=== PATIENT | female | born 1990 | race Caucasian/White ===

== ENCOUNTER → 2019-02-24 14:46 | Outpatient (CLI) | payer SELFPAY ==
[2015-07-19 14:04] VITALS: BMI 27.3
[2019-02-24 15:50] LABS: Color, Urine Yellow (Yellow); Glucose, Dipstick Normal (Normal); Ketone-Dipstick Negative (Negative); Leukocyte Esterase-Dipstick Negative /ul (Negative); Nitrite-Dipstick Negative (Negative); Occult Blood-Urine Negative /ul (Negative); Protein-Dipstick Negative (Negative); Urine Bilirubin Dipstick Negative (Negative); Urine Clarity Sl. Cloudy (Clear); Urine Urobilinogen Normal (Normal); Urine pH 6.5 (5.0 - 8.0)
[2019-02-24 15:57] LABS: Absolute Neutrophil Count 6.9 X10^3/uL (2.0-7.7); Basophil# 0.02 X10^3/uL; Basophil% 0.2 % (0-1); Eosinophil# 0.06 X10^3/uL; Eosinophils% 0.6 % (0-5); Hematocrit 38.6 % (37-47); Hemoglobin 12.7 g/dl (12.0-15.0); Lymphocyte % 19.4 % (19-41); Mean Corp Hgb Conc 32.9 g/gl (32-36); Mean Corpuscular Hgb 26.9 pg (27.0-32.0); Mean Corpuscular Volume 81.8 fL (81-99); Mean Platelet Vol. 9.2 fl (6.2-12.0); Monocyte# 0.56 X10^3/uL; Neutrophil # 6.85 X10^3/uL (2.7-7.7); Neutrophil % 73.7 % (47-70); Platelet Count 302 K/mm3 (150-450); RBC Distribution Width CV 13.1 % (11.6-14.6); RBC Distribution Width SD 38.4 fl (35.1-43.9); Red Blood Count 4.72 M/mm3 (4.2-5.4); White Blood Count 9.3 K/mm3 (4.4-11.0)
[2019-02-24 16:01] LABS: POSITIVE COUNT NO; POSITIVE DIFFERENTIAL NO; POSITIVE MORPHOLOGY NO
[2019-02-24 16:05] LABS: Thyroid Stim Hormone (TSH) 0.94 uIU/mL (0.358-3.74)
[2019-02-24 16:46] LABS: HIV - WCH Non-Reactive (Nonreactive); Rubella IgG 128.1 IU/mL
[2019-02-24 17:50] LABS: Chlamydia Trachomatis by PCR Negative (Negative); Neisserai gonorrhoeae by PCR Negative (Negative); Probe Check PASS; Sample Adequacy Control PASS; Specimen Processing Control PASS
[2019-02-26 11:06] LABS: HEPATITIS B SURFACE AG Negative (Negative); Hep C Antibodies <0.1 s/co ratio (0.0-0.9)
[2019-02-28 01:43] LABS: Prenatal RPR NONREACTIVE (NONREACTIVE)
[2019-02-28 11:50] LABS: HPV Reflexed? NOT INDICATED
== END ==
PROVIDERS: Visit Provider Obstetrics & Gynecology
DX: Z34.81 Encounter for supervision of other normal pregnancy, first trimester (principal); Z12.4 Encounter for screening for malignant neoplasm of cervix; Z11.3 Encounter for screening for infections with a predominantly sexual mode of transmission
CPT/HCPCS: 36415; 81002; 84443; 85025; 86703; 86762; 86803; 87340; 87491; 87591; 87624; 88175; G0145

== ENCOUNTER → 2019-08-19 11:30 | Outpatient (CLI) | payer OTHER, SELFPAY | PROVIDERS: Visit Provider Obstetrics & Gynecology | DX: Z36.85 Encounter for antenatal screening for Streptococcus B (principal) | CPT/HCPCS: 87081 ==

== ENCOUNTER 2019-09-15 06:23 | Inpatient (IN) | payer SELFPAY, OTHER ==
[2015-07-19 14:04] VITALS: BMI 27.3
[2019-09-15 04:34] VITALS: BMI 28.6
[2019-09-15] MEDS: Lactated Ringers 1,000 ML 50 ML IV (06:40)
[2019-09-15 07:05] LABS: Absolute Neutrophil Count 7.2 X10^3/uL (2.0-7.7); Basophil# 0.03 X10^3/uL; Basophil% 0.3 % (0-1); Eosinophil# 0.05 X10^3/uL; Eosinophils% 0.5 % (0-5); Hematocrit 37.5 % (37-47); Hemoglobin 12.2 g/dL (12.0-15.0); Lymphocyte % 16.6 % (19-41); Mean Corp Hgb Conc 32.5 g/dL (32-36); Mean Corpuscular Hgb 28.2 pg (27.0-32.0); Mean Corpuscular Volume 86.6 fL (81-99); Mean Platelet Vol. 9.2 fl (6.2-12.0); Monocyte# 0.68 X10^3/uL; Monocyte% 7.1 % (0-10); NRBC Flagged by Analyzer 0 % (0-5); Neutrophil # 7.17 X10^3/uL (2.7-7.7); Neutrophil % 74.7 % (47-70); Platelet Count 231 K/mm3 (150-450); RBC Distribution Width CV 13.3 % (11.6-14.6); RBC Distribution Width SD 41.5 fl (35.1-43.9); Red Blood Count 4.33 M/mm3 (4.2-5.4); White Blood Count 9.6 K/mm3 (4.4-11.0)
--- NOTE | 2019-09-15 07:46 | PCM.HP.OB ---
History Date of Admission: 09/15/19 Final GUILLERMO: 09/13/19 Final GUILLERMO Source: US <20 weeks Gestational age: 40 Weeks and 3 Days History of this : This is a 29 year-old, G [], P [], at 40 weeks gestational age. Allergies venom-honey bee [bee venom (honey bee)] Allergy (Verified 09/15/19 04:47) Anaphylaxis Home Medications: Home Medications Vits [Prenatabs FA] 1 tablet PO DAILY 07/19/15 Calcium Carb/Mag Ox/Zinc Sulf [Leqljwa-Jamixiwfk-Uyxm Tablet] PO DAILY 09/15/19 Vitamin B Complex 1 ea PO DAILY 09/15/19 Smoking Status: Never smoker Alcohol: None Number of Fetus(es): 1 NST - FHR Rate Baby A Baseline: 120 Variability:: Moderate Accelerations:: 15 x 15 Decelerations:: None NST Reactive:: Yes FHR Category:: Category I Uterine Activity:: Q 2-6 History Past Pregnancies: Past Pregnancies Delivery Date Name GA/ Weeks Outcome Route Wt Sex Labor Length Anesthesia Delivery Location Provider FO 03/20/14 7 SAB [facility] Giancarlo Norton 03/19/15 39 Live 7lb. 3 oz M 12 None [place] Rufino Norton Labs: [facility] & Results 09/15/19 09/15/19 09/16/19 06:40 06:40 04:45 WBC 9.6 14.6 H RBC 4.33 4.34 Hgb 12.2 12.1 Hct 37.5 37.1 MCV 86.6 85.5 MCH 28.2 27.9 MCHC 32.5 32.6 RDW Std Deviation 41.5 41.7 RDW Coeff of [place] 13.3 13.5 Plt Count 231 211 MPV 9.2 9.4 Immature Gran % (Auto) 0.800 Neut % (Auto) 74.7 H Lymph % (Auto) 16.6 L [place] % (Auto) 7.1 Eos % (Auto) 0.5 Baso % (Auto) 0.3 Absolute Neuts (auto) 7.2 Absolute Lymphs (auto) 1.60 Nucleated RBC % 0 Blood Type O POSITIVE Antibody Screen NEGATIVE Course Did the patient receive Yes care? Labs Blood Type: O RH: POSITIVE RPR/VDRL/Syphilis Nonreactive Rubella status Immune HbSAg Negative Date Done: 02/24/19 Chlamydia Negative Gonorrhea Negative HIV/AIDS Non-Reactive Group B Strep: Negative Current Obstetrical History Gestational Diabetes No Incompetent Cervix No Infertility No IUGR No Macrosomia No Hypertension/Pre-eclampsia No Placenta Previa/Abruption No PTL/PROM No Uterine anomaly No Oligohydramnios No Polyhydramnios No Multiple gestation No Past Medical History Asthma No Diabetes No Hypertension No Heart disease No Mitral valve prolapse No Neurologic/Seizure disorder/ No Migraines Kidney disease No Liver disease No Varicosities No Clotting disorders/Hx of DVT No Thyroid Dysfunction No Other medical diseases No Psychiatric disorders No Major trauma No Abnormal PAP smear No Sleep apnea No Mammogram in the last 2 years No Social History Marital Status: Alleged father Ura Hx Smoking No Smoking Status Never smoker Expected Infant Delivery Method: Spontaneous Vaginal Number of Visits: 11 Physical Exam General: Alert, Oriented x3, Cooperative, No apparent distress HEENT: PERRLA, EOMI Cardiovascular: Regular rate, Regular Rhythm Lungs: Clear to auscultation, Normal air movement Abdomen: Bowel Sounds Present, Soft, Non Tender, Non-Distended, No Hepato-splenomegaly, Passing Flatus, Gravid Extremities:: No edema Neurological: Cranial nerves II-XII grossly intact, Deep Tendon Reflexes 2+/4 and Symmetrical, Neuro grossly intact Presentation: Cephalic Cervix Dilation (cm): 60 Station: -1 Effacement (%): 60 - Per RNexam at 0420 Assessment/Plan Assessment: 29yo at 40w2d gestation by 11w 2d US Active labor Group B negative O pos Cat 1 FHTs Plan: Admit to L&D Expectant Management Anticipate vaginal delivery
[2019-09-15] MEDS: Lactated Ringers 500 ML 999 ML IV (12:04)
[2019-09-15] MEDS: Oxytocin 30 units/NS 500 ml 30 UNITS/500 ML IV.SOLN IV (15:55)
--- NOTE | 2019-09-15 18:20 | PCM.PN.BLA ---
Progress Note S: Breathing through contractions; declines pain meds/epidural; feeling pressure with contractions, not between; spouse bedside and supportive O: AVSS FHTs: 125 baseline, moderate variability, no accels, early decels UCs: Q 2-3 Pitocin: Off at this time Cervix: 7 90/-1 at 1654 per RN A: Active labor AROM x 5.5 hours (1305 per John Joy) Group B negative O Pos blood type P: Continue close monitoring Anticipate vaginal delivery
[2019-09-15] MEDS: Oxytocin 30 units/NS 500 ml 30 UNITS/500 ML IV.SOLN 999 UNITS IV (19:57)
[2019-09-15] MEDS: Methylergonovine 0.2 MG/ML Ampul IM (19:59)
--- NOTE | 2019-09-15 21:05 | PCM.OPRPT ---
Vaginal Delivery Early labor Amniotic Membrane Rupture Type: Artificial - Per Dr. John Joy Rupture of Membrane time: 1305 Amniotic Fluid Description: Clear Final GUILLERMO: 09/13/19 Final GUILLERMO Source: US <20 weeks Gestational age: 40 Weeks and 2 Days Date of Procedure: 09/15/19 Pre-Operative Diagnosis: Post dates , active labor Post-Operative Diagnosis: Surgery/ Procedure Performed: Spontaneous Vaginal Delivery Type of Anesthesia: Local with 1% lidocaine Description of Procedure: CTSP when she was C/C/+1; pushed with significant effort for minimal descent while FHTs began dropping into the 60s-80s; pt instructed to stop pushing and was moved hands and knees position; Dr. John Joy called to bedside; when FHR recovered, pt pushed twice with good effort and delivered a viable male infant over a first degree vaginal/perineal laceration, OA to MATT; placed into arms of waiting RN, dried, stimulated and bulb-suctioned; APGARs 8/9; cord clamped x 2 and cut by CNM, and moved to nearby radiant warmer; cord blood, arterial and venous cord blood gases obtained; placenta delivered spontaneously, Hernandez mechanism, intact, 3-vessel cord, marginal insertion; infant then returned to mother for skin to skin care; first degree vaginal to perineal laceration repaired with 3-0 Vicryl, good hemostasis obtained; EBL 250 Lap sponge, raytec and instrument count correct x 2 with RN Presentation: Vertex, MATT Placental Delivery Description: Spontaneous Placenta Disposition: [facility] Cord Vessel Description: 3 Vessels Cord Gases drawn per routine: ABG, VBG Cord Entanglement: None A gender: Male (1 minute): 8 (5 minute): 9 Episiotomy Description: None Laceration: Midline, Vaginal Extension/lac, 1st degree Medications given after delivery: IV Pitocin, IM Methergin
[2019-09-15] MEDS: Ibuprofen 600 MG Tablet PO (21:07)
--- NOTE | 2019-09-15 21:25 | DCINST_ITS ---
<WinterBrigitte - Last Filed: 09/15/19 21:25> Discharge Diet: No Restrictions Discharge Activity: Return to Normal Activity, No Restrictions, May Drive, May Shower, May Take a Tub Bath Return to work on:: 10/27/19 May resume sexual activity in: 6-8 weeks Weight Bearing Status: Weight bearing as tolerated Lifting Restrictions: Nothing heagier than the infant for two weeks Additional Activity Instructions:: Minimize cooking, cleaning, shopping and long car rides for two weeks; try to get at least 8 hours sleep in 24 hours for the first two weeks Call your doctor if your incision/area has: Continuous Slow Oozing, Increased Pain/ Swelling, Increased Redness, Foul Smelling Discharge Call your doctor if you observe: Fever of 101 or Higher, Coldness, Increased Pain, Change in Color, Inability to urinate, Inability to have a bowel movement, Using more than one pad per hour, Shortness of breath Suture Line Care: Avoid Pulling/Pushing Additional Instructions: If you experience any of the following, contact your healthcare provider. * Bleeding that soaks a pad every hour for 2 hours * Fever 100.4 or higher * Unrelieved incision or abdominal pain * Swelling, redness, discharge or bleeding from your incision or episiotomy site * Your incision begins to separate * Problems urinating (including inability to urinate or burning while urinating). * Visual changes * Severe headache * Flu-like symptoms * Pain or redness in one of both of your breasts * Pain, warmth, tenderness or swelling in your legs, especially the calf area * Frequent nausea and vomiting * Symptoms of depression or anxiety If you experience any of the following, call 911 or go to the nearest Emergency Room. * Chest pain * Problems breathing * Seizure activity * Partial or complete paralysis of a body part, slurred speech, weakness or drooping of the face, or a sudden inability to walk or hold your balance Allergies/Adverse Reactions: Allergies venom-honey bee [bee venom (honey bee)] Allergy (Verified 09/15/19 04:47) Anaphylaxis Medications to take at Discharge Vits [Prenatabs FA] 1 tablet PO DAILY 07/19/15 Calcium Carb/Mag Ox/Zinc Sulf [Ytqjhnb-Zyxkxoqhk-Ludl Tablet] PO DAILY 09/15/19 Vitamin B Complex 1 ea PO DAILY 09/15/19 Please Follow Up With: Brigitte Winter CNM When: in six weeks for check up Test Results: Test results from this visit will be discussed in further detail at your follow- up appointment, if applicable. Proposed Discharge Date: 09/18/19 <Mercedes Fabian - Last Filed: 09/17/19 10:16> Additional Instructions: If you experience any of the following, contact your healthcare provider. * Bleeding that soaks a pad every hour for 2 hours * Fever 100.4 or higher * Unrelieved incision or abdominal pain * Swelling, redness, discharge or bleeding from your incision or episiotomy site * Your incision begins to separate * Problems urinating (including inability to urinate or burning while urinating). * Visual changes * Severe headache * Flu-like symptoms * Pain or redness in one of both of your breasts * Pain, warmth, tenderness or swelling in your legs, especially the calf area * Frequent nausea and vomiting * Symptoms of depression or anxiety If you experience any of the following, call 911 or go to the nearest Emergency Room. * Chest pain * Problems breathing * Seizure activity * Partial or complete paralysis of a body part, slurred speech, weakness or drooping of the face, or a sudden inability to walk or hold your balance Test Results: Test results from this visit will be discussed in further detail at your follow- up appointment, if applicable.
[2019-09-15 22:07] VITALS: BP 135/63; PULSE 78; RESP 16; TEMP 37.1; O2SAT 98
[2019-09-15] MEDS: 0.9% Saline Lock 10 ML Syringe IV (22:38)
[2019-09-15 23:01] VITALS: BP 111/67; PULSE 77; RESP 16; TEMP 37.2
[2019-09-15] MEDS: Acetaminophen 500 MG Tablet 1000 MG PO (23:02)
[2019-09-16 03:30] VITALS: BP 111/72; PULSE 87; RESP 16; TEMP 37.1
[2019-09-16 04:56] LABS: Hematocrit 37.1 % (37-47); Hemoglobin 12.1 g/dL (12.0-15.0); Mean Corp Hgb Conc 32.6 g/dL (32-36); Mean Corpuscular Hgb 27.9 pg (27.0-32.0); Mean Corpuscular Volume 85.5 fL (81-99); Mean Platelet Vol. 9.4 fl (6.2-12.0); Platelet Count 211 K/mm3 (150-450); RBC Distribution Width CV 13.5 % (11.6-14.6); RBC Distribution Width SD 41.7 fl (35.1-43.9); Red Blood Count 4.34 M/mm3 (4.2-5.4); White Blood Count 14.6 K/mm3 (4.4-11.0)
[2019-09-16] MEDS: Senna/Docusate Sodium 1 Tablet PO (05:12)
[2019-09-16] MEDS: Ibuprofen 600 MG Tablet PO ×2 (05:12→14:55)
[2019-09-16 09:10] VITALS: BP 108/67; PULSE 78; RESP 16; TEMP 36.7
--- NOTE | 2019-09-16 10:20 | PCM.PN.OB ---
Subjective: Pain well controlled, tolerating diet, passing flatus; nursing well Objective: AVSS Breasts soft, nipples atraumatic Fundus firm, midline u/3 First degree perineal repair well approximated, moderate edema, no drainage, erythema or ecchymosis noted - Physical Exam Vitals/I&O's: Vital Signs Temp Pulse Resp BP Pulse Ox 98.1 F 78 16 108/67 98 09/16/19 09:10 09/16/19 09:10 09/16/19 09:10 09/16/19 09:10 09/15/19 22:07 Oxygen Delivery Method Room Air Weight: 172 lb 3.2 oz Body Mass Index (BMI) 28.6 Intake and Output for Last 24 Hours 09/14/19 09/15/19 09/16/19 23:59 23:59 23:59 Intake Total 1524.23 / 1524.23 Output Total 250 / 250 500 / 500 Balance 1274.23 / 1274.23 -500 / -500 General: Alert, Oriented x3, Cooperative, No apparent distress HEENT: PERRLA, Normocephalic Oral: Moist Mucosa Neck: Supple Lungs: Clear to auscultation, Normal air movement Cardiovascular: Regular rate, Regular Rhythm Abdomen: Bowel Sounds Present, Soft, Non Tender, Non-Distended, Passing Flatus, Bowel Sounds Not Present Extremities: No edema, Capillary Refill Less than 3 Seconds, No Calf Tenderness Skin: No rashes Musculoskeletal: No Tenderness to Palpation of Joints or Extremities Neurological: Cranial nerves II-XII grossly intact, Deep Tendon Reflexes 2+/4 and Symmetrical, Neuro grossly intact Psych/Mental Status: Normal Affect, Appropriate, Alert and oriented to time, place, person, mood and affect Laboratory Results 09/16/19 04:45: WBC 14.6 H, RBC 4.34, Hgb 12.1, Hct 37.1, MCV 85.5, MCH 27.9, MCHC 32.6, RDW Std Deviation 41.7, RDW Coeff of [place] 13.5, Plt Count 211, MPV 9.4 Current Medications Acetaminophen (Tylenol) 1,000 mg PO Q8H PRN PRN PRN Reason: Pain Score 1-3/10 Last Admin: 09/15/19 23:02 Dose: 1,000 mg Documented by: Bisacodyl (Dulcolax) 10 mg RECTAL UD PRN PRN Reason: If no BM Dibucaine (Dibucaine) 1 applic TOPICAL TID PRN PRN; Protocol PRN Reason: Discomfort Hydrocortisone (Hytone) 1 applic TOPICAL TID PRN PRN; Protocol PRN Reason: Discomfort Ibuprofen (Motrin) 600 mg PO Q6H PRN PRN PRN Reason: Pain Score 1-3/10 Last Admin: 09/16/19 05:12 Dose: 600 mg Documented by: Methylergonovine Maleate (Methergine) 0.2 mg IM X1 PRN PRN Reason: Excess bleeding/uterine atony Last Admin: 09/15/19 19:59 Dose: 0.2 mg Documented by: Ondansetron HCl (Zofran) 4 mg IV Q4H PRN PRN PRN Reason: Nausea Senna/Docusate Sodium (Senokot-S, Jannet-Colace) 1 - 2 tablet PO DAILY PRN PRN PRN Reason: Constipation Last Admin: 09/16/19 05:12 Dose: 1 tablet Documented by: Simethicone (Mylicon) 80 mg PO PCHS PRN PRN Reason: Indigestion/Stomach pain Sodium Chloride () 5 - 15 ml IV UD PRN PRN Reason: SALINE FLUSH Last Admin: 09/15/19 22:38 Dose: 10 ml Documented by: Medical Necessity - Tobacco Use Smoking Status: Never smoker Assessment/Plan Assessment: 29yo G3 now P2012 delivered via at 40w2d gestation by 11w 2d US day #1, normal involution, normal course Plan: Discharge teaching started Continue routine care DC home tomorrow
[2019-09-16 12:00] VITALS: BP 114/55; PULSE 82; RESP 16; TEMP 37
[2019-09-16 16:05] VITALS: BP 111/66; PULSE 77; RESP 15; TEMP 36.9
[2019-09-16 20:15] VITALS: BP 106/65; PULSE 87; RESP 18; TEMP 36.6
[2019-09-17 02:35] VITALS: BP 115/68; PULSE 85; RESP 18; TEMP 36.2
[2019-09-17] MEDS: Ibuprofen 600 MG Tablet PO (02:44)
[2019-09-17] MEDS: Senna/Docusate Sodium 1 Tablet PO (02:44)
[2019-09-17 08:23] VITALS: BP 97/56; PULSE 75; RESP 14; TEMP 36.9
--- NOTE | 2019-09-17 10:16 | PCM.DC.SUM ---
Discharge Date and Diagnosis Date of Admission: 09/15/19 Date of Discharge: 09/17/19 Hospital Course and Treatment Operations: None Procedures: None Summary of Care Provided: The patient is a 29 year old F post vaginal delivery, day 2. Subjective: Feeling well, with cramps controlled by Tylenol and Motrin. well. Objective: VSS. Fundus u/2, firm, midline. Normal lochia. No redness, warmth or signs of infection at vaginal repair. Reports + first BM. - Physical Exam Vitals/I&O's: Vital Signs Temp Pulse Resp BP Pulse Ox 98.5 F 75 14 97/56 L 98 09/17/19 08:23 09/17/19 08:23 09/17/19 08:23 09/17/19 08:23 09/15/19 22:07 Oxygen Delivery Method Room Air Weight: 78.109 kg Body Mass Index (BMI) 28.6 Intake and Output for Last 24 Hours 09/15/19 09/16/19 09/17/19 23:59 23:59 23:59 Intake Total 1524.23 / 1524.23 Output Total 250 / 250 500 / 500 Balance 1274.23 / 1274.23 -500 / -500 General: Alert, Oriented x3, Cooperative HEENT: Atraumatic, PERRLA, EOMI, Normocephalic Neck: Supple, No JVD, Negative Carotid Bruits Lungs: Clear to auscultation, Normal air movement Cardiovascular: Regular rate, No murmurs Abdomen: Bowel Sounds Present, Soft, Non Tender, Passing Flatus, - - Fundus U/2 Extremities: No edema, Capillary Refill Less than 3 Seconds Skin: No rashes, No breakdown Musculoskeletal: No Tenderness to Palpation of Joints or Extremities Neurological: Cranial nerves II-XII grossly intact Psych/Mental Status: Normal Affect, Appropriate Current Medications Acetaminophen (Tylenol) 1,000 mg PO Q8H PRN PRN PRN Reason: Pain Score 1-3/10 Last Admin: 09/15/19 23:02 Dose: 1,000 mg Documented by: Bisacodyl (Dulcolax) 10 mg RECTAL UD PRN PRN Reason: If no BM Dibucaine (Dibucaine) 1 applic TOPICAL TID PRN PRN; Protocol PRN Reason: Discomfort Hydrocortisone (Hytone) 1 applic TOPICAL TID PRN PRN; Protocol PRN Reason: Discomfort Ibuprofen (Motrin) 600 mg PO Q6H PRN PRN PRN Reason: Pain Score 1-3/10 Last Admin: 09/17/19 02:44 Dose: 600 mg Documented by: Methylergonovine Maleate (Methergine) 0.2 mg IM X1 PRN PRN Reason: Excess bleeding/uterine atony Last Admin: 09/15/19 19:59 Dose: 0.2 mg Documented by: Ondansetron HCl (Zofran) 4 mg IV Q4H PRN PRN PRN Reason: Nausea Senna/Docusate Sodium (Senokot-S, Jannet-Colace) 1 - 2 tablet PO DAILY PRN PRN PRN Reason: Constipation Last Admin: 09/17/19 02:44 Dose: 2 tablet Documented by: Simethicone (Mylicon) 80 mg PO PCHS PRN PRN Reason: Indigestion/Stomach pain Sodium Chloride () 5 - 15 ml IV UD PRN PRN Reason: SALINE FLUSH Last Admin: 09/15/19 22:38 Dose: 10 ml Documented by: Discharge Diet: No Restrictions Discharge Activity: Return to Normal Activity, No Restrictions, May Drive, May Shower, May Take a Tub Bath Return to work on:: 10/27/19 May resume sexual activity in: 6-8 weeks Weight Bearing Status: Weight bearing as tolerated Additional Activity Instructions:: Minimize cooking, cleaning, shopping and long car rides for two weeks; try to get at least 8 hours sleep in 24 hours for the first two weeks Call your doctor if your incision/area has: Continuous Slow Oozing, Increased Pain/ Swelling, Increased Redness, Foul Smelling Discharge Call your doctor if you observe: Fever of 101 or Higher, Coldness, Increased Pain, Change in Color, Inability to urinate, Inability to have a bowel movement, Using more than one pad per hour, Shortness of breath Suture Line Care: Avoid Pulling/Pushing Home Medications: Medications to take at Discharge Vits [Prenatabs FA] 1 tablet PO DAILY 07/19/15 Calcium Carb/Mag Ox/Zinc Sulf [Qzgmrmb-Smmxmvinn-Aigw Tablet] PO DAILY 09/15/19 Vitamin B Complex 1 ea PO DAILY 09/15/19 Please Follow Up With: Brigitte Winter CNM Medical Necessity - Tobacco Use Smoking Status: Never smoker Meaningful Use Info Meaningful Use Diagnoses (Choose all that apply): None applicable
[2019-09-17 12:30] VITALS: BP 93/66; PULSE 84; RESP 16; TEMP 36.6
== END 2019-09-17 12:43 | disposition home or self-care (01) | DRG 807 ==
LOC: WPOUT 06:25 → WP 06:25
PROVIDERS: Admitting Provider Advanced Practice Midwife; Referring Provider Advanced Practice Midwife; Visit Provider Advanced Practice Midwife
DX: O36.8330 Maternal care for abnormalities of the fetal heart rate or rhythm, third trimester, not applicable or unspecified (principal); Z37.0 Single live birth; O70.0 First degree perineal laceration during delivery; O48.0 Post-term pregnancy; Z3A.40 40 weeks gestation of pregnancy
CPT/HCPCS: 59025; 59050; 76815; 85025; 85027; 86850; 86900; 86901; 99218; J7120; A4216; G0378